=== PATIENT | female | born 2005 | race Caucasian/White ===

== ENCOUNTER 2024-07-07 21:04 | Outpatient (CLI) | payer MEDICAID, SELFPAY ==
[2024-07-07 21:22] VITALS: BMI 32.7
[2024-07-07 21:28] VITALS: BP 124/80; PULSE 113
[2024-07-07 21:43] VITALS: BP 122/78; PULSE 113
[2024-07-07 21:56] VITALS: BP 102/65; PULSE 93
[2024-07-07 22:13] VITALS: BP 122/76; PULSE 91; PULSE 97; O2SAT 97
[2024-07-07 22:30] VITALS: BP 122/76; PULSE 91; RESP 15; TEMP 36.7; O2SAT 97
== END 2024-07-07 22:35 | disposition home or self-care (01) ==
LOC: OPOB 21:15 → OBGYN 21:16
DX: O26.893 Other specified pregnancy related conditions, third trimester (principal); Z3A.36 36 weeks gestation of pregnancy; Z91.81 History of falling
CPT/HCPCS: 59025; 99211